=== PATIENT | female | born 1975 | race American Indian/Alaskan Native ===

== ENCOUNTER 2018-01-20 16:23 | Inpatient (IN) | payer SELFPAY ==
--- NOTE | 2018-01-20 17:02 | Emergency Department Report ---
ED Chest Pain HPI - General Chief Complaint: Chest Pain Stated Complaint: CHEST PAIN Time Seen by Provider: 01/20/18 16:49 Source: patient, EMS Mode of arrival: Stretcher Limitations: No Limitations - History of Present Illness Initial Comments: 42-year-old female presents to the emergency department via EMS from home with a complaint of midsternal chest pain that began about 45 minutes prior to presentation. After calling 911 she was instructed to take 325 mg of aspirin and she received sublingual nitroglycerin in route with EMS and currently she says that her chest pain has resolved. She had some mild shortness of breath when the chest pain was going on. The patient had a myocardial infarction with stent placement approximately 3 weeks ago at [facility] in [place]. She does not know what artery was stented. She has a history of hypertension for which she is on 2 or 3 blood pressure medications. She denies any family history of early cardiac events. She denies any tobacco or illicit drug use or abuse. - Related Data Allergies Allergy/AdvReac Type Severity Reaction Status Date / Time No Known Allergies Allergy Unverified 01/20/18 16:41 Heart Score - HEART Score History: Moderately suspicious EKG: Non-specific Age: < 45 Risk factors: 1-2 risk factors Troponin: 1-3x normal limit HEART Score: 4 - Critical Actions Critical Actions: 4-6 pts:12-16.6% risk of adverse cardiac event. Should be admitted ED Review of Systems ROS: Stated complaint: CHEST PAIN Other details as noted in HPI Comment: All other systems reviewed and negative Constitutional: denies: chills, fever Eyes: denies: eye pain, eye discharge, vision change ENT: denies: ear pain, throat pain Respiratory: shortness of breath. denies: cough Cardiovascular: chest pain. denies: palpitations Gastrointestinal: denies: abdominal pain, nausea, diarrhea Genitourinary: denies: urgency, dysuria, discharge Musculoskeletal: denies: back pain, joint swelling, arthralgia Skin: denies: rash, lesions Neurological: denies: headache, weakness, paresthesias ED Past Medical Hx - Past Medical History Previous Medical History?: Yes Hx Hypertension: Yes Hx Heart Attack/AMI: Yes - Surgical History Past Surgical History?: Yes - Social History Smoking Status: Never Smoker Substance Use Type: None ED Physical Exam - General Limitations: No Limitations - Other Other exam information: GENERAL: The patient is well-developed well-nourished. HENT: Normocephalic. Atraumatic. Patient has moist mucous membranes. EYES: Extraocular motions are intact. Pupils equal reactive to light bilaterally. NECK: Supple. Trachea is midline. CHEST/LUNGS: Clear to auscultation. There is no respiratory distress noted. HEART/CARDIOVASCULAR: Regular. There is no tachycardia. There is no murmur. ABDOMEN: Abdomen is soft, nontender. Patient has normal bowel sounds. There is no abdominal distention. SKIN: Skin is warm and dry. NEURO: The patient is awake, alert, and oriented. The patient is cooperative. The patient has no focal neurologic deficits. The patient has normal speech. MUSCULOSKELETAL: There is no tenderness or deformity. There is no limitation range of motion. There is no evidence of acute injury. ED Course Vital Signs 01/20/18 01/20/18 01/20/18 16:33 17:00 17:30 Temperature 98.7 F Pulse Rate 89 77 70 Respiratory 16 14 14 Rate Blood Pressure 191/107 174/95 155/89 O2 Sat by Pulse 100 100 100 Oximetry 01/20/18 01/20/18 01/20/18 18:45 18:53 19:00 Temperature Pulse Rate 73 73 Respiratory 14 26 H Rate Blood Pressure 153/89 153/89 158/85 O2 Sat by Pulse 99 Oximetry 01/20/18 01/20/18 01/20/18 19:30 19:45 20:00 Temperature Pulse Rate 81 76 Respiratory 34 H 32 H 31 H Rate Blood Pressure 161/99 161/99 167/93 O2 Sat by Pulse 100 100 99 Oximetry MYRTLE score - Myrtle Score Age > 65: (0) No Aspirin use within the Past 7 Days: (1) Yes 3 or more CAD Risk Factors: (1) Yes 2 or more Angina events in past 24 hrs: (1) Yes Known CAD with more than 50% Stenosis: (0) No Elevated Cardiac Markers: (1) Yes ST Deviation Greater than 0.5mm: (1) Yes MYRTLE Score: 5 ED Medical Decision Making - Lab Data Result diagrams: 01/20/18 16:59 01/20/18 16:59 - EKG Data -: EKG Interpreted by Fl EKG shows normal: sinus rhythm, axis (left axis deviation), intervals, QRS complexes (early repolarization to septal leads), ST-T waves (T-wave inversions to the lateral leads) Rate: normal - EKG Data When compared to previous EKG there are: previous EKG unavailable Interpretation: other (sinus rhythm, LVH, interventricular conduction delay with early repolarization, T-wave inversions in the lateral leads) - Radiology Data Radiology results: image reviewed interpreted by me: Chest x-ray does not show any acute process. There are no pleural effusions, obvious pneumonia and there is no pneumothorax. - Medical Decision Making Patient no longer has any of the chest pain. However she has a history of a NE with recent stent from about 3 weeks ago. EKG shows some repolarization abnormalities and LVH but no obvious ST elevation NE. Patient's labs show renal insufficiency with a creatinine of 3.3. The patient says that she does have some history recently of renal insufficiency but she is unsure what her creatinine or GFR rate is/was. It sounds like the patient did not follow-up with any primary care physicians prior to her recent NE. Tried to obtain records from the [facility] where she had the NE but nothing has been sent yet. She has some anemia with a hemoglobin slightly above 9. First troponin is slightly elevated at 0.038. This may be secondary to her renal insufficiency but also may be signs of her coronary artery disease. We will trend the troponins. Patient will be admitted to the hospital for further evaluation, serial troponins and cardiac consultation. She was accepted for admission by the hospitalist, Dr. Preciado. - Differential Diagnosis NE, Costochondritis, GERD, Pneumonia Critical Care Time: No Critical care attestation.: If time is entered above; I have spent that time in minutes in the direct care of this critically ill patient, excluding procedure time. ED Disposition Clinical Impression: Elevated troponin I level Chest pain Qualifiers: Chest pain type: unspecified Qualified Code(s): R07.9 - Chest pain, unspecified Renal failure Qualifiers: Renal failure chronicity: unspecified chronicity Qualified Code(s): N19 - Unspecified kidney failure Hypertension Qualifiers: Hypertension type: essential hypertension Qualified Code(s): I10 - Essential ( primary) hypertension Disposition: OP ADMIT IP TO THIS HOSP Is pt being admited?: Yes Condition: Fair Time of Disposition: 18:31
[2018-01-20 17:17] LABS: Mean Corpuscular HGB Conc 28 % (30-34); Red Blood Count 5.55 M/mm3 (3.65-5.03)
[2018-01-20 17:18] LABS: Hematocrit 33.3 % (30.3-42.9); Hemoglobin 9.3 gm/dl (10.1-14.3); Mean Corpuscular Hemoglobin 17 pg (28-32); Mean Corpuscular Volume 60 fl (79-97); Platelet Count 250 K/mm3 (140-440); Red Cell Distribution Width 36.3 % (13.2-15.2)
[2018-01-20 17:26] LABS: INR 0.99 (0.87-1.13)
[2018-01-20 17:32] LABS: Calcium 9.1 mg/dL (8.4-10.2)
[2018-01-20] MEDS ORDERED: LOPRESSOR IV ONE (17:34)
[2018-01-20 17:57] LABS: Chol/HDL Ratio 3.5 %
[2018-01-20 18:12] LABS: Basophils % (Manual) 0 % (0.0-1.8); Eosinophils % (Manual) 0 % (0.0-4.3); Total Cells Counted 100
[2018-01-20 18:13] LABS: Hypochromasia 3+; Large Platelets 1+
[2018-01-20 18:14] LABS: Ovalocytes Few; Platelet Estimate Consistent w Auto; Target Cells 1+
--- NOTE | 2018-01-20 18:19 | XRay Report ---
FINAL REPORT EXAM: XR CHEST 1V AP HISTORY: CP TECHNIQUE: Single, portable chest x-ray. PRIORS: None. FINDINGS: Cardiac and mediastinal silhouette within normal limits. Lungs are normally expanded, without significant vascular congestion. No focal consolidation or apparent pneumothorax. Bony thorax grossly unremarkable. IMPRESSION: 1. No acute findings.
[2018-01-20] MEDS ORDERED: ZOFRAN IV PRN (21:41)
[2018-01-20] MEDS ORDERED: MORPHINE IV PRN (21:41)
[2018-01-20] MEDS ORDERED: SODIUM CHLORIDE FLUSH SYRINGE 10 ML IV PRN (21:41)
[2018-01-20] MEDS ORDERED: TYLENOL PO PRN (21:41)
[2018-01-20] MEDS ORDERED: REGLAN IV PRN ×2 (21:41→21:59)
[2018-01-20] MEDS ORDERED: PERCOCET 5/325 PO PRN (21:41)
--- NOTE | 2018-01-20 21:41 | History and Physical Report ---
History of Present Illness Date of examination: 01/20/18 Date of admission: 01/20/18 18:31 Chief complaint: Chief complaint Left-sided chest pain for 45 minutes prior to admission History of present illness: History of Present Illness: 42-year-old female with history of hypertension and coronary artery disease presents with retrosternal chest pain 45 hours prior to admission to the emergency room. Patient called EMS and 911. Sublingual nitroglycerin was given with which his assessment is resolved but she continued to have some headache. Patient had a stent placement 3 weeks ago at [facility]. Patient was also told that she has chronic kidney disease. In the past patient only had hypertension. No exacerbating or relieving factors ,no diaphoresis. Past Medical History Previous Medical History?: Yes Hx Hypertension: Yes Hx Heart Attack/AMI: Yes Surgical History Past Surgical History?: Yes Social History Smoking Status: Never Smoker Substance Use Type: None Review of Systems ROS: Stated complaint: CHEST PAIN Other details as noted in HPI Comment: All other systems reviewed and negative Constitutional: denies: chills, fever Eyes: denies: eye pain, eye discharge, vision change ENT: denies: ear pain, throat pain Respiratory: shortness of breath. denies: cough Cardiovascular: chest pain. denies: palpitations Gastrointestinal: denies: abdominal pain, nausea, diarrhea Genitourinary: denies: urgency, dysuria, discharge Musculoskeletal: denies: back pain, joint swelling, arthralgia Skin: denies: rash, lesions Neurological: denies: headache, weakness, paresthesias 14 point review of systems done--- otherwise negative Medications and Allergies Allergies Allergy/AdvReac Type Severity Reaction Status Date / Time No Known Allergies Allergy Unverified 01/20/18 16:41 Active Meds: Active Medications Heparin Sodium (Porcine) (Heparin) 5,000 unit SUB-Q Q8HR SHIRIN Exam - Physical Exam Narrative exam: Lying in bed comfortably - Constitutional Vitals: Temp Pulse Resp BP Pulse Ox 98.7 F 74 31 H 167/93 99 01/20/18 16:33 01/20/18 21:01 01/20/18 20:00 01/20/18 20:00 01/20/18 20:00 General appearance: Present: no acute distress, well-nourished - EENT Eyes: Present: PERRL ENT: hearing intact, clear oral mucosa - Neck Neck: Present: supple, normal ROM - Respiratory Respiratory effort: normal Respiratory: bilateral: CTA - Cardiovascular Heart rate: 93 Rhythm: regular Heart Sounds: Present: S1 & S2. Absent: rub, click - Extremities Extremities: no ischemia, pulses intact, pulses symmetrical, No edema Peripheral Pulses: within normal limits - Abdominal General gastrointestinal: Present: soft, non-tender, non-distended, normal bowel sounds Female genitourinary: Present: normal - Integumentary Integumentary: Present: clear, warm, dry - Musculoskeletal Musculoskeletal: gait normal, strength equal bilaterally - Psychiatric Psychiatric: appropriate mood/affect, intact judgment & insight - Neurologic Neurologic: CNII-XII intact, moves all extremities - Allied Health Allied health notes reviewed: nursing, case management Results - Labs CBC & Chem 7: 01/20/18 16:59 01/21/18 Unknown Labs: Laboratory Last Values WBC 7.0 K/mm3 (4.5-11.0) 01/20/18 16:59 RBC 5.55 M/mm3 (3.65-5.03) H 01/20/18 16:59 Hgb 9.3 gm/dl (10.1-14.3) L 01/20/18 16:59 Hct 33.3 % (30.3-42.9) 01/20/18 16:59 MCV 60 fl (79-97) L 01/20/18 16:59 MCH 17 pg (28-32) L 01/20/18 16:59 MCHC 28 % (30-34) L 01/20/18 16:59 RDW 36.3 % (13.2-15.2) H 01/20/18 16:59 Plt Count 250 K/mm3 (140-440) 01/20/18 16:59 Add Manual Diff Complete 01/20/18 16:59 Total Counted 100 01/20/18 16:59 Seg Neuts % (Manual) 81.0 % (40.0-70.0) H 01/20/18 16:59 Band Neutrophils % 0 % 01/20/18 16:59 Lymphocytes % (Manual) 13.0 % (13.4-35.0) L 01/20/18 16:59 Reactive Lymphs % (Man) 0 % 01/20/18 16:59 Monocytes % (Manual) 6.0 % (0.0-7.3) 01/20/18 16:59 Eosinophils % (Manual) 0 % (0.0-4.3) 01/20/18 16:59 Basophils % (Manual) 0 % (0.0-1.8) 01/20/18 16:59 Metamyelocytes % 0 % 01/20/18 16:59 Myelocytes % 0 % 01/20/18 16:59 Promyelocytes % 0 % 01/20/18 16:59 Blast Cells % 0 % 01/20/18 16:59 Nucleated RBC % Not Reportable 01/20/18 16:59 Seg Neutrophils # Man 5.7 K/mm3 (1.8-7.7) 01/20/18 16:59 Band Neutrophils # 0.0 K/mm3 01/20/18 16:59 Lymphocytes # (Manual) 0.9 K/mm3 (1.2-5.4) L 01/20/18 16:59 Abs React Lymphs (Man) 0.0 K/mm3 01/20/18 16:59 Monocytes # (Manual) 0.4 K/mm3 (0.0-0.8) 01/20/18 16:59 Eosinophils # (Manual) 0.0 K/mm3 (0.0-0.4) 01/20/18 16:59 Basophils # (Manual) 0.0 K/mm3 (0.0-0.1) 01/20/18 16:59 Metamyelocytes # 0.0 K/mm3 01/20/18 16:59 Myelocytes # 0.0 K/mm3 01/20/18 16:59 Promyelocytes # 0.0 K/mm3 01/20/18 16:59 Blast Cells # 0.0 K/mm3 01/20/18 16:59 WBC Morphology Not Reportable 01/20/18 16:59 Hypersegmented Neuts Not Reportable 01/20/18 16:59 Hyposegmented Neuts Not Reportable 01/20/18 16:59 Hypogranular Neuts Not Reportable 01/20/18 16:59 Smudge Cells Not Reportable 01/20/18 16:59 Toxic Granulation Not Reportable 01/20/18 16:59 Toxic Vacuolation Not Reportable 01/20/18 16:59 Dohle Bodies Not Reportable 01/20/18 16:59 Pelger-Huet Anomaly Not Reportable 01/20/18 16:59 Mukesh Rods Not Reportable 01/20/18 16:59 Platelet Estimate Consistent w auto 01/20/18 16:59 Clumped Platelets Not Reportable 01/20/18 16:59 Plt Clumps, EDTA Not Reportable 01/20/18 16:59 Large Platelets 1+ 01/20/18 16:59 Giant Platelets Not Reportable 01/20/18 16:59 Platelet Satelliting Not Reportable 01/20/18 16:59 Plt Morphology Comment Not Reportable 01/20/18 16:59 RBC Morphology Not Reportable 01/20/18 16:59 Dimorphic RBCs Not Reportable 01/20/18 16:59 Polychromasia Not Reportable 01/20/18 16:59 Hypochromasia 3+ 01/20/18 16:59 Poikilocytosis Not Reportable 01/20/18 16:59 Anisocytosis Not Reportable 01/20/18 16:59 Microcytosis 2+ 01/20/18 16:59 Macrocytosis Not Reportable 01/20/18 16:59 Spherocytes Not Reportable 01/20/18 16:59 Pappenheimer Bodies Not Reportable 01/20/18 16:59 Sickle Cells Not Reportable 01/20/18 16:59 Target Cells 1+ 01/20/18 16:59 Tear Drop Cells Not Reportable 01/20/18 16:59 Ovalocytes Few 01/20/18 16:59 Helmet Cells Not Reportable 01/20/18 16:59 Gregory-Ambler Bodies Not Reportable 01/20/18 16:59 [place] Rings Not Reportable 01/20/18 16:59 [place] Cells Not Reportable 01/20/18 16:59 Bite Cells Not Reportable 01/20/18 16:59 Crenated Cell Not Reportable 01/20/18 16:59 Elliptocytes Not Reportable 01/20/18 16:59 Acanthocytes (Spur) Not Reportable 01/20/18 16:59 Rouleaux Not Reportable 01/20/18 16:59 Hemoglobin C Crystals Not Reportable 01/20/18 16:59 Schistocytes Not Reportable 01/20/18 16:59 Malaria parasites Not Reportable 01/20/18 16:59 Toby Bodies Not Reportable 01/20/18 16:59 Hem Pathologist Commnt No 01/20/18 16:59 PT 13.6 Sec. (12.2-14.9) 01/20/18 16:59 INR 0.99 (0.87-1.13) 01/20/18 16:59 APTT 32.0 Sec. (24.2-36.6) 01/20/18 16:59 Sodium 138 mmol/L (137-145) 01/20/18 16:59 Potassium 4.8 mmol/L (3.6-5.0) 01/20/18 16:59 Chloride 102.3 mmol/L (98-107) 01/20/18 16:59 Carbon Dioxide 24 mmol/L (22-30) 01/20/18 16:59 Anion Gap 17 mmol/L 01/20/18 16:59 BUN 34 mg/dL (7-17) H 01/20/18 16:59 Creatinine 3.3 mg/dL (0.7-1.2) H 01/20/18 16:59 Estimated GFR 18 ml/min 01/20/18 16:59 BUN/Creatinine Ratio 10 % 01/20/18 16:59 Glucose 137 mg/dL (65-100) H 01/20/18 16:59 Calcium 9.1 mg/dL (8.4-10.2) 01/20/18 16:59 Troponin T 0.038 ng/mL (0.00-0.029) H 01/20/18 16:59 Triglycerides 212 mg/dL (2-149) H 01/20/18 16:59 Cholesterol 228 mg/dL (50-199) H 01/20/18 16:59 LDL Cholesterol Direct 142 mg/dL (50-130) H 01/20/18 16:59 HDL Cholesterol 65 mg/dL (40-59) H 01/20/18 16:59 Cholesterol/HDL Ratio 3.50 % 01/20/18 16:59 Short CBC 01/20/18 Range/Units 16:59 WBC 7.0 (4.5-11.0) K/mm3 Hgb 9.3 L (10.1-14.3) gm/dl Hct 33.3 (30.3-42.9) % Plt Count 250 (140-440) K/mm3 BMP 01/20/18 01/21/18 16:59 Unknown Sodium 138 137 Potassium 4.8 4.1 Chloride 102.3 102.2 Carbon Dioxide 24 24 BUN 34 H 31 H Creatinine 3.3 H 3.1 H Glucose 137 H 79 Calcium 9.1 8.9 Cardiac Enzymes 01/20/18 01/20/18 01/20/18 Range/Units 16:59 21:41 23:10 Troponin T 0.038 H 0.065 H D 0.057 H (0.00-0.029) ng/mL 01/21/18 Range/Units Unknown Troponin T 0.069 H D (0.00-0.029) ng/mL Liver Function 01/21/18 Range/Units Unknown Total Bilirubin 0.50 (0.1-1.2) mg/dL AST 19 (5-40) units/L ALT 6 L (7-56) units/L Alkaline Phosphatase 100 (35-129) units/L Albumin 3.6 L (3.9-5) g/dL - Imaging and Cardiology EKG: report reviewed (normal sinus rhythm 93 LVH [address] IVCD anterior ST elevation. Deep paravertebral region aVL lead 1 and lead to ONLY 4586 EKG interpreted by me) Chest x-ray: report reviewed (no acute findings) Assessment and Plan Advance Directives: Yes (full code) VTE prophylaxis?: Chemical Plan of care discussed with patient/family: Yes - Patient Problems (1) NSTEMI (non-ST elevated myocardial infarction) Current Visit: Yes Status: Acute Plan to address problem: Patient has elevated troponin and EKG changes consistent with non-STEMI Heparin IV was initiated as standard drip with bolus (2) Acute kidney injury Current Visit: Yes Status: Acute Plan to address problem: Will give IV fluid challenge Patient may have underlying chronic kidney disease Renal consult requested (3) Hypertension Current Visit: Yes Status: Chronic Qualifiers: Hypertension type: essential hypertension Qualified Code(s): I10 - Essential (primary) hypertension Plan to address problem: Continue antihypertensives (4) Dyslipidemia Current Visit: Yes Status: Chronic Plan to address problem: Statins initiated (5) Anemia Current Visit: Yes Status: Chronic Qualifiers: Anemia type: due to chronic kidney disease Chronic kidney disease stage: stage 4 (severe) Qualified Code(s): N18.4 - Chronic kidney disease, stage 4 ( severe); D63.1 - Anemia in chronic kidney disease Plan to address problem: Secondary to chronic kidney disease (6) DVT prophylaxis Current Visit: Yes Status: Acute Plan to address problem: Patient on heparin drip
[2018-01-20] MEDS ORDERED: PEPCID PO SCH (22:00)
[2018-01-20] MEDS ORDERED: COZAAR PO SCH (22:00)
[2018-01-20] MEDS: COLACE PO SCH (23:30)
[2018-01-20] MEDS: HEPARIN SUB-Q SCH (23:32)
[2018-01-20] MEDS: SODIUM CHLORIDE FLUSH SYRINGE 10 ML IV SCH (23:33)
[2018-01-20] MEDS: PEPCID PO SCH (23:33)
[2018-01-21 06:49] LABS: Albumin 3.6 g/dL (3.9-5); Calcium 8.9 mg/dL (8.4-10.2)
[2018-01-21] MEDS: HEPARIN SUB-Q SCH (07:14)
[2018-01-21] MEDS ORDERED: HEPARIN 10,000 UNITS/10 ML IV NR (07:49)
[2018-01-21] MEDS ORDERED: HEPARIN/ 0.45% NACL-25,000 UNIT/500 ML 25,000 UNIT/500 ML BAG IV SCH (08:00)
[2018-01-21] MEDS ORDERED: NACL 0.9% 1000 ML 1,000 ML IV SCH (08:00)
--- NOTE | 2018-01-21 08:33 | Consultation ---
History of Present Illness - Reason for Consult Consult date: 01/21/18 - History of Present Illness pt was seen and examined. Consult dictated Medications and Allergies Allergies Allergy/AdvReac Type Severity Reaction Status Date / Time No Known Allergies Allergy Unverified 01/20/18 16:41 Home Medications Medication Instructions Recorded Confirmed Last Taken Type No Known Home Medications [No 01/21/18 01/21/18 Unknown History Reported Home Medications] Active Meds: Active Medications Acetaminophen (Tylenol) 650 mg PO Q4H PRN PRN Reason: Pain MILD(1-3)/Fever >100.5/ANTONIO Docusate Sodium (Colace) 100 mg PO BID [facility] Last Admin: 01/20/18 23:30 Dose: Not Given Famotidine (Pepcid) 10 mg PO BID [facility] Last Admin: 01/20/18 23:33 Dose: 10 mg Heparin Sodium (Porcine) (Heparin 10,000 Units/10 Ml) 3,700 unit 60 unit/kg ( 3700 unit) IV ONCE NR Stop: 01/21/18 10:00 Heparin Sodium/Sodium Chloride (Heparin/ 0.45% Nacl-25,000 Unit/500 Ml) 25,000 unit in 500 mls @ 18 mls/hr IV TITRATE SHIRIN; Protocol Sodium Chloride (Nacl 0.9% 1000 Ml) 1,000 mls @ 75 mls/hr IV DIRECT SHIRIN Losartan Potassium (Cozaar) 100 mg PO QDAY [facility] Last Admin: 01/20/18 23:31 Dose: 100 mg Metoclopramide HCl (Reglan) 5 mg IV Q6H PRN PRN Reason: Nausea And Vomiting Morphine Sulfate (Morphine) 2 mg IV Q4H PRN PRN Reason: Pain, Moderate (4-6) Ondansetron HCl (Zofran) 4 mg IV Q8H PRN PRN Reason: Nausea And Vomiting Oxycodone/Acetaminophen (Percocet 5/325) 1 tab PO Q6H PRN PRN Reason: Pain, Moderate (4-6) Sodium Chloride (Sodium Chloride Flush Syringe 10 Ml) 10 ml IV PRN PRN PRN Reason: LINE FLUSH Sodium Chloride (Sodium Chloride Flush Syringe 10 Ml) 10 ml IV BID [facility] Last Admin: 01/20/18 23:33 Dose: 10 ml Exam - Constitutional Vitals: Temp Pulse Resp BP Pulse Ox 98.6 F 68 20 135/83 100 01/21/18 04:52 01/21/18 04:52 01/21/18 04:52 01/21/18 04:52 01/21/18 08:00 Results - Labs CBC & Chem 7: 01/21/18 07:52 01/21/18 Unknown Labs: Abnormal lab results 01/20/18 01/20/18 01/20/18 Range/Units 16:59 16:59 21:41 RBC 5.55 H (3.65-5.03) M/mm3 Hgb 9.3 L (10.1-14.3) gm/dl MCV 60 L (79-97) fl MCH 17 L (28-32) pg MCHC 28 L (30-34) % RDW 36.3 H (13.2-15.2) % Seg Neuts % (Manual) 81.0 H (40.0-70.0) % Lymphocytes % (Manual) 13.0 L (13.4-35.0) % Lymphocytes # (Manual) 0.9 L (1.2-5.4) K/mm3 BUN 34 H (7-17) mg/dL Creatinine 3.3 H (0.7-1.2) mg/dL Glucose 137 H (65-100) mg/dL ALT (7-56) units/L Troponin T 0.038 H 0.065 H D (0.00-0.029) ng/mL Albumin (3.9-5) g/dL Triglycerides 212 H (2-149) mg/dL Cholesterol 228 H (50-199) mg/dL LDL Cholesterol Direct 142 H (50-130) mg/dL HDL Cholesterol 65 H (40-59) mg/dL 01/20/18 01/21/18 01/21/18 Range/Units 23:10 Unknown Unknown RBC (3.65-5.03) M/mm3 Hgb (10.1-14.3) gm/dl MCV (79-97) fl MCH (28-32) pg MCHC (30-34) % RDW (13.2-15.2) % Seg Neuts % (Manual) (40.0-70.0) % Lymphocytes % (Manual) (13.4-35.0) % Lymphocytes # (Manual) (1.2-5.4) K/mm3 BUN 31 H (7-17) mg/dL Creatinine 3.1 H (0.7-1.2) mg/dL Glucose (65-100) mg/dL ALT 6 L (7-56) units/L Troponin T 0.057 H 0.069 H D (0.00-0.029) ng/mL Albumin 3.6 L (3.9-5) g/dL Triglycerides (2-149) mg/dL Cholesterol (50-199) mg/dL LDL Cholesterol Direct (50-130) mg/dL HDL Cholesterol (40-59) mg/dL
[2018-01-21 08:41] LABS: Hematocrit 31.6 % (30.3-42.9); Hemoglobin 9.3 gm/dl (10.1-14.3)
[2018-01-21 08:42] LABS: INR 0.97 (0.87-1.13)
[2018-01-21 08:43] LABS: Partial Thromboplastin Time 35.4 Sec. (24.2-36.6)
--- NOTE | 2018-01-21 09:14 | Consultation ---
History of Present Illness Consult date: 01/21/18 Requesting physician: JAIMIE MELVIN Consult reason: chest pain, elevated troponin History of present illness: The pt is a 42 Yo female with a past medical history significant for HTN, ? HLP , ? CKD and reported CAD s/p AMI with stent placement approximately 3 weeks ago at [facility] in [facility]. She is previously unknown to our practice. She presented with complaints of "heart racing" and chest pain. She reports that she was sitting in her car yesterday and talking on the phone when she noted sudden onset heart racing which lasted for several minutes and then resolved. Shortly after the resolution of this symptom, she developed chest pain. She describes her chest pain as a constant, nonexertional , nonradiating midsternal burning pain. She called EMS and was instructed to take 325mg of ASA and she received sublingual nitroglycerin en route with EMS and her chest pain was resolved. The chest pain lasted for approx 20-25 minutes total. She denies any SOB, n/v, diaphoresis, dizziness or syncope. She reports that during her recent AMI, she experienced nausea, vomiting and SOB with very minimal chest pain. She reports compliance with her home cardiac medication regimen, including ASA 81, plavix, coreg, furosemide, amlodipine, clonidine and furosemide. Following arrival, she was found to have acute renal failure with serum Cr 3.3. Pt reports that during her recent hospitalization 3 weeks ago, she was told she had kidney failure and may need dialysis in the near future. Past History Past Medical History: acute AL, CAD, hypertension, hyperlipidemia Past Surgical History: , PTCA Social history: denies: smoking, alcohol abuse, prescription drug abuse Medications and Allergies Allergies Allergy/AdvReac Type Severity Reaction Status Date / Time No Known Allergies Allergy Unverified 01/20/18 16:41 Home Medications Medication Instructions Recorded Confirmed Last Taken Type No Known Home Medications [No 01/21/18 01/21/18 Unknown History Reported Home Medications] Active Meds: Active Medications Acetaminophen (Tylenol) 650 mg PO Q4H PRN PRN Reason: Pain MILD(1-3)/Fever >100.5/ANTONIO Docusate Sodium (Colace) 100 mg PO BID [facility] Last Admin: 01/20/18 23:30 Dose: Not Given Famotidine (Pepcid) 10 mg PO BID [facility] Last Admin: 01/20/18 23:33 Dose: 10 mg Heparin Sodium (Porcine) (Heparin 10,000 Units/10 Ml) 3,700 unit 60 unit/kg ( 3700 unit) IV ONCE NR Stop: 01/21/18 10:00 Heparin Sodium/Sodium Chloride (Heparin/ 0.45% Nacl-25,000 Unit/500 Ml) 25,000 unit in 500 mls @ 18 mls/hr IV TITRATE SHIRIN; Protocol Sodium Chloride (Nacl 0.9% 1000 Ml) 1,000 mls @ 75 mls/hr IV DIRECT SHIRIN Losartan Potassium (Cozaar) 100 mg PO QDAY [facility] Last Admin: 01/20/18 23:31 Dose: 100 mg Metoclopramide HCl (Reglan) 5 mg IV Q6H PRN PRN Reason: Nausea And Vomiting Morphine Sulfate (Morphine) 2 mg IV Q4H PRN PRN Reason: Pain, Moderate (4-6) Ondansetron HCl (Zofran) 4 mg IV Q8H PRN PRN Reason: Nausea And Vomiting Oxycodone/Acetaminophen (Percocet 5/325) 1 tab PO Q6H PRN PRN Reason: Pain, Moderate (4-6) Sodium Chloride (Sodium Chloride Flush Syringe 10 Ml) 10 ml IV PRN PRN PRN Reason: LINE FLUSH Sodium Chloride (Sodium Chloride Flush Syringe 10 Ml) 10 ml IV BID [facility] Last Admin: 01/20/18 23:33 Dose: 10 ml Review of Systems Constitutional: no weight loss, no weight gain, no fever, no chills, no sweats Ears, nose, mouth and throat: no ear pain, no nose pain, no sinus pressure, no sinus pain Cardiovascular: chest pain, palpitations, rapid/irregular heart beat, high blood pressure, no orthopnea, no edema, no syncope, no lightheadedness, no shortness of breath, no dyspnea on exertion, no leg edema, no decreased exercise tolerance Respiratory: no cough, no shortness of breath, no dyspnea on exertion, no congestion, no wheezing, no pain on inspiration Gastrointestinal: no abdominal pain, no nausea, no vomiting, no diarrhea, no constipation, no change in bowel habits Genitourinary Female: no pelvic pain, no flank pain, no dysuria, no urinary frequency, no urgency Musculoskeletal: no neck stiffness, no neck pain Integumentary: no rash, no pruritis, no redness, no sores, no wounds Neurological: no head injury, no paralysis, no weakness, no parathesias, no numbness, no tingling, no seizures, no syncope Psychiatric: no anxiety Endocrine: no cold intolerance, no heat intolerance Hematologic/Lymphatic: no easy bruising, no easy bleeding, no lymphadenopathy Allergic/Immunologic: no urticaria, no wheezing, no persistent infections Physical Examination Vital Signs Temp Pulse Resp BP Pulse Ox 98.7 F 89 16 191/107 100 01/20/18 16:33 01/20/18 16:33 01/20/18 16:33 01/20/18 16:33 01/20/18 16:33 General appearance: no acute distress HEENT: Positive: PERRL, Normocephaly, Mucus Membranes Moist Neck: Positive: neck supple, trachea midline Cardiac: Positive: Reg Rate and Rhythm, S1/S2 Lungs: Positive: clear to auscultation Neuro: Positive: Grossly Intact, Cranial Nerve 2-12 Intact Abdomen: Positive: Soft. Negative: Tender Skin: Positive: Clear. Negative: Rash, Wound Musculoskeletal: No Fluid Collection, No Pain, Normal Range of Motion Extremities: Absent: edema Results 01/21/18 07:52 01/21/18 Unknown Cardiac Enzymes 01/21/18 Range/Units Unknown AST 19 (5-40) units/L Coagulation 01/20/18 01/21/18 Range/Units 16:59 07:52 PT 13.6 13.4 (12.2-14.9) Sec. INR 0.99 0.97 (0.87-1.13) APTT 32.0 35.4 (24.2-36.6) Sec. Lipids 01/20/18 Range/Units 16:59 Triglycerides 212 H (2-149) mg/dL Cholesterol 228 H (50-199) mg/dL HDL Cholesterol 65 H (40-59) mg/dL Cholesterol/HDL Ratio 3.50 % CBC 01/20/18 01/21/18 Range/Units 16:59 07:52 WBC 7.0 (4.5-11.0) K/mm3 RBC 5.55 H (3.65-5.03) M/mm3 Hgb 9.3 L 9.3 L (10.1-14.3) gm/dl Hct 33.3 31.6 (30.3-42.9) % Plt Count 250 250 (140-440) K/mm3 Comprehensive Metabolic Panel 01/20/18 01/21/18 Range/Units 16:59 Unknown Sodium 138 137 (137-145) mmol/L Potassium 4.8 4.1 (3.6-5.0) mmol/L Chloride 102.3 102.2 (98-107) mmol/L Carbon Dioxide 24 24 (22-30) mmol/L BUN 34 H 31 H (7-17) mg/dL Creatinine 3.3 H 3.1 H (0.7-1.2) mg/dL Glucose 137 H 79 (65-100) mg/dL Calcium 9.1 8.9 (8.4-10.2) mg/dL AST 19 (5-40) units/L ALT 6 L (7-56) units/L Alkaline Phosphatase 100 (35-129) units/L Total Protein 6.9 (6.3-8.2) g/dL Albumin 3.6 L (3.9-5) g/dL - Imaging and Cardiology Echo: pending EKG: report reviewed, image reviewed EKG interpretations - Telemetry EKG Rhythm: Sinus Rhythm - EKG Sinus rhythms and dysrhythmias: sinus rhythm Chamber hypertrophy or enlargement: left ventricular hypertro Repolarization changes or abnormalities: repolarization abn secondary to ventricular hypertrophy Assessment and Plan Assessment: Chest pain, atypical - currently resolved CAD s/p AMI with stent placement approximately 3 weeks ago at [facility] in [facility] Acute renal failure on ? CKD Minimally elevated troponins - suspect secondary to renal insufficiency Abnormal EKG Accelerated HTN HLP Plan: Obtain echo. Attempt to obtain medical records from [place]. Resume home ASA, plavix, coreg. Initiate lipitor and imdur. No ACEI/ARB at this time in setting of renal insufficiency. Consider lexiscan MPI stress test prior to hospital discharge if unable to obtain medical records from [place]. Await nephrology consultation and recommendations. Assessment and plan reviewed with pt at bedside. The patient has been seen in conjunction with Dr. Jaffe who agrees with the assessment and plan of care.
[2018-01-21] MEDS ORDERED: BABY ASPIRIN PO SCH (10:00)
[2018-01-21] MEDS: PLAVIX PO SCH (10:59)
[2018-01-21] MEDS ORDERED: ASPIRIN PO SCH (11:00)
[2018-01-21] MEDS ORDERED: IMDUR PO SCH (11:00)
[2018-01-21 11:02] LABS: Creatine Kinase MB 2.7 ng/mL (0.0-4.0)
[2018-01-21] MEDS: COLACE PO SCH ×2 (11:02→22:48)
[2018-01-21 11:04] LABS: % Iron Saturation 15.59 %
[2018-01-21] MEDS: COREG PO SCH ×2 (11:08→22:49)
[2018-01-21] MEDS: PEPCID PO SCH ×2 (11:08→22:48)
[2018-01-21] MEDS: SODIUM CHLORIDE FLUSH SYRINGE 10 ML IV SCH ×2 (11:09→22:50)
[2018-01-21 14:24] LABS: Bilirubin,Urine NEG (Negative); Blood,Urine NEG (Negative); Chloride, Urine 39.9 mmolL (110-250); Color,Urine Yellow (Yellow); Creatinine,Urine 128.6 mg/dL (0.1-20.0); Urobilinogen,Urine < 2.0 mg/dL (<2.0)
--- NOTE | 2018-01-21 15:25 | Progress Note ---
Assessment and Plan - Patient Problems (1) NSTEMI (non-ST elevated myocardial infarction) Current Visit: Yes Status: Acute Plan to address problem: Per cardiology patient has atypical chest pain Heparin drip stopped Lexiscan ordered Medical records from [facility] requested (2) Acute kidney injury Current Visit: Yes Status: Acute Plan to address problem: Will give IV fluid challenge Patient may have underlying chronic kidney disease Renal consult requested (3) Hypertension Current Visit: Yes Status: Chronic Qualifiers: Hypertension type: essential hypertension Qualified Code(s): I10 - Essential (primary) hypertension Plan to address problem: Continue antihypertensives (4) Dyslipidemia Current Visit: Yes Status: Chronic Plan to address problem: Statins initiated (5) Anemia Current Visit: Yes Status: Chronic Qualifiers: Anemia type: due to chronic kidney disease Chronic kidney disease stage: stage 4 (severe) Qualified Code(s): N18.4 - Chronic kidney disease, stage 4 ( severe); D63.1 - Anemia in chronic kidney disease Plan to address problem: Secondary to chronic kidney disease (6) DVT prophylaxis Current Visit: Yes Status: Acute Plan to address problem: Patient on heparin drip Subjective Date of service: 01/21/18 Principal diagnosis: NSTEMI/Atypical chest pain Interval history: Symptomatically better. Chest pain resolved Objective - Exam Narrative Exam: Lying in bed comfortably - Constitutional Vitals: Vital Signs - 12hr 01/21/18 01/21/18 01/21/18 04:52 07:33 08:00 Temperature 98.6 F 98.6 F Pulse Rate 68 64 Respiratory 20 18 Rate Blood Pressure 135/83 157/83 Blood Pressure [Right] O2 Sat by Pulse 100 100 100 Oximetry 01/21/18 01/21/18 11:00 11:53 Temperature 98.1 F Pulse Rate 73 Respiratory 18 Rate Blood Pressure 157/83 Blood Pressure 152/84 [Right] O2 Sat by Pulse 100 Oximetry General appearance: Present: no acute distress, well-nourished - EENT Eyes: PERRL, EOM intact ENT: hearing intact, clear oral mucosa Ears: bilateral: normal - Neck Neck: supple, normal ROM - Respiratory Respiratory effort: normal Respiratory: bilateral: CTA - Breasts Breasts: normal - Cardiovascular Heart rate: 70 Rhythm: regular Heart Sounds: Present: S1 & S2. Absent: gallop, rub Extremities: no ischemia, pulses intact, No edema, normal color, Full ROM - Gastrointestinal General gastrointestinal: Present: soft, non-tender, non-distended, normal bowel sounds - Genitourinary Female genitourinary: normal - Integumentary Integumentary: clear, warm, dry - Musculoskeletal Musculoskeletal: 1, strength equal bilaterally - Neurologic Neurologic: moves all extremities - Psychiatric Psychiatric: memory intact, appropriate mood/affect, intact judgment & insight - Labs CBC & Chem 7: 01/21/18 07:52 01/21/18 Unknown Labs: Abnormal lab results 01/20/18 01/20/18 01/20/18 Range/Units 16:59 16:59 21:41 RBC 5.55 H (3.65-5.03) M/mm3 Hgb 9.3 L (10.1-14.3) gm/dl MCV 60 L (79-97) fl MCH 17 L (28-32) pg MCHC 28 L (30-34) % RDW 36.3 H (13.2-15.2) % Seg Neuts % (Manual) 81.0 H (40.0-70.0) % Lymphocytes % (Manual) 13.0 L (13.4-35.0) % Lymphocytes # (Manual) 0.9 L (1.2-5.4) K/mm3 BUN 34 H (7-17) mg/dL Creatinine 3.3 H (0.7-1.2) mg/dL Glucose 137 H (65-100) mg/dL ALT (7-56) units/L CK-MB (CK-2) Rel Index (0-4) Troponin T 0.038 H 0.065 H D (0.00-0.029) ng/mL Albumin (3.9-5) g/dL Triglycerides 212 H (2-149) mg/dL Cholesterol 228 H (50-199) mg/dL LDL Cholesterol Direct 142 H (50-130) mg/dL HDL Cholesterol 65 H (40-59) mg/dL Urine Creatinine (0.1-20.0) mg/dL Urine Chloride (110-250) mmolL 01/20/18 01/21/18 01/21/18 Range/Units 23:10 07:52 07:52 RBC (3.65-5.03) M/mm3 Hgb 9.3 L (10.1-14.3) gm/dl MCV (79-97) fl MCH (28-32) pg MCHC (30-34) % RDW (13.2-15.2) % Seg Neuts % (Manual) (40.0-70.0) % Lymphocytes % (Manual) (13.4-35.0) % Lymphocytes # (Manual) (1.2-5.4) K/mm3 BUN (7-17) mg/dL Creatinine (0.7-1.2) mg/dL Glucose (65-100) mg/dL ALT (7-56) units/L CK-MB (CK-2) Rel Index (0-4) Troponin T 0.057 H 0.060 H (0.00-0.029) ng/mL Albumin (3.9-5) g/dL Triglycerides (2-149) mg/dL Cholesterol (50-199) mg/dL LDL Cholesterol Direct (50-130) mg/dL HDL Cholesterol (40-59) mg/dL Urine Creatinine (0.1-20.0) mg/dL Urine Chloride (110-250) mmolL 01/21/1818 01/21/18 Range/Units 09:35 Unknown Unknown RBC (3.65-5.03) M/mm3 Hgb (10.1-14.3) gm/dl MCV (79-97) fl MCH (28-32) pg MCHC (30-34) % RDW (13.2-15.2) % Seg Neuts % (Manual) (40.0-70.0) % Lymphocytes % (Manual) (13.4-35.0) % Lymphocytes # (Manual) (1.2-5.4) K/mm3 BUN 31 H (7-17) mg/dL Creatinine 3.1 H (0.7-1.2) mg/dL Glucose (65-100) mg/dL ALT 6 L (7-56) units/L CK-MB (CK-2) Rel Index 5.4 H (0-4) Troponin T 0.053 H 0.069 H D (0.00-0.029) ng/mL Albumin 3.6 L (3.9-5) g/dL Triglycerides (2-149) mg/dL Cholesterol (50-199) mg/dL LDL Cholesterol Direct (50-130) mg/dL HDL Cholesterol (40-59) mg/dL Urine Creatinine (0.1-20.0) mg/dL Urine Chloride (110-250) mmolL 05/30/18 Range/Units Unknown RBC (3.65-5.03) M/mm3 Hgb (10.1-14.3) gm/dl MCV (79-97) fl MCH (28-32) pg MCHC (30-34) % RDW (13.2-15.2) % Seg Neuts % (Manual) (40.0-70.0) % Lymphocytes % (Manual) (13.4-35.0) % Lymphocytes # (Manual) (1.2-5.4) K/mm3 BUN (7-17) mg/dL Creatinine (0.7-1.2) mg/dL Glucose (65-100) mg/dL ALT (7-56) units/L CK-MB (CK-2) Rel Index (0-4) Troponin T (0.00-0.029) ng/mL Albumin (3.9-5) g/dL Triglycerides (2-149) mg/dL Cholesterol (50-199) mg/dL LDL Cholesterol Direct (50-130) mg/dL HDL Cholesterol (40-59) mg/dL Urine Creatinine 128.6 H (0.1-20.0) mg/dL Urine Chloride 39.9 L (110-250) mmolL
[2018-01-22] MEDS ORDERED: APRESOLINE IV PRN (01:04)
[2018-01-22 08:35] LABS: Calcium 8.7 mg/dL (8.4-10.2)
[2018-01-22 08:48] VITALS: BP 161/84
--- NOTE | 2018-01-22 09:48 | Consultation ---
RENAL CONSULTATION REASON FOR CONSULTATION: Acute renal failure. HISTORY OF PRESENT ILLNESS: This 42-year-old female with a history of coronary artery disease status post recent stent about 3 weeks ago in [place] at [facility] in [place], [place], was brought to the Emergency Room for midsternal chest pain. She was noted to have a blood pressure of 191/107, pulse 89, temperature 98.7 in the Emergency Room. Labs were remarkable for BUN of 34, creatinine of 3.3, hemoglobin of 9.3. The patient states that she was told to have weak kidney function in [place] when she had the cardiac stent. PAST MEDICAL HISTORY: Hypertension, coronary artery disease, status post recent stent. PERSONAL HISTORY: Denies smoking, alcohol or drug abuse. FAMILY HISTORY: No family history of kidney failure. ALLERGIES: No known allergies. CURRENT MEDICATIONS: Aspirin 325 mg once a day, atorvastatin 80 mg a day, carvedilol 6.25 mg p.o. b.i.d., Plavix 75 mg a day, famotidine 10 mg p.o. b.i.d. , isosorbide 30 mg a day, metoclopramide p.r.n. FAMILY HISTORY: No family history of kidney failure. ALLERGIES: None. REVIEW OF SYSTEMS: The patient denies headache or dizziness. Denies fever or chills. Denies chest pain at the present time. Denies shortness of breath. Denies abdomen pain, nausea or vomiting. Denies swelling of the legs. Denies dysuria or hematuria. Other review of systems are reviewed and negative. PHYSICAL EXAMINATION: GENERAL: The patient is alert, oriented, pleasant female, not in acute distress. VITAL SIGNS: Blood pressure 157/83, pulse 73, afebrile. HEAD: Normocephalic. EYES: Pupils reactive. Conjunctivae pale. Oral mucosa and tongue are moist. Lips non-cyanotic. NECK: No JVD, no thyroid enlargement. LUNGS: Clear. HEART: S1, S2 regular. No pericardial rub. ABDOMEN: Soft, bowel sounds present, nontender. No masses palpable. EXTREMITIES: No significant edema. LABORATORY DATA: On 01/20/2018, BUN 34, creatinine 3.3. Sodium 138, potassium 4.8, chloride 102, CO2 of 24, glucose 137, calcium 9.1. Troponin 0.038. Triglycerides 212, cholesterol 228, LDL 142, HDL 65. ASSESSMENT AND PLAN: 1. Acute versus acute on chronic kidney disease, status post recent coronary stent with contrast exposure. 2. Hypertension. 3. Anterior chest wall pain. 4. Anemia. 5. Hyperlipidemia. Check urine studies and a renal ultrasound. Adjust medications per renal function. Avoid hypotension. Thank you for the consultation. MOHSEN
--- NOTE | 2018-01-22 09:53 | Progress Note ---
Assessment and Plan - Patient Problems (1) Acute kidney injury superimposed on CKD Current Visit: Yes Status: Acute Plan to address problem: Base line renal function not known. Recent cardiac cath/contrast exposure, coronary stent in [place]. Pt is non oliguric, renal function stable. 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 Adjust meds per renal function. with eGFR-CKD stage 4. No hydronephrosis on renal ultrasound. Discussed with Dr. Preciado (2) HTN (hypertension) Current Visit: Yes Status: Acute (3) Chest pain Current Visit: Yes Status: Acute Qualifiers: Chest pain type: unspecified Qualified Code(s): R07.9 - Chest pain, unspecified (4) Anemia Current Visit: Yes Status: Acute Plan to address problem: monitor--check work up Subjective Date of service: 01/22/18 Principal diagnosis: NSTEMI/Atypical chest pain Interval history: pt is alert, oriented, denies CP or SOB at present time, planning to go back to [place] next week Objective - Vital Signs Vital signs: Vital Signs - 12hr 01/21/18 01/22/18 01/22/18 22:49 00:33 01:14 Temperature 98.5 F Pulse Rate 74 77 79 Respiratory 20 Rate Blood Pressure 183/96 185/100 189/100 Blood Pressure [Right] O2 Sat by Pulse 100 Oximetry 01/22/18 01/22/18 01/22/18 03:57 04:00 06:03 Temperature 98.6 F Pulse Rate 90 76 Respiratory 20 Rate Blood Pressure 167/100 Blood Pressure 162/83 [Right] O2 Sat by Pulse 100 Oximetry 01/22/18 08:13 Temperature 98.0 F Pulse Rate 70 Respiratory 19 Rate Blood Pressure 161/84 Blood Pressure [Right] O2 Sat by Pulse 96 Oximetry - General Appearance General appearance: well-developed EENT: mucous membranes moist Neck: no JVD Respiratory: Present: Clear to Ascultation Cardiology: regular Gastrointestinal: normoactive bowel sounds Neurologic: alert and oriented x3 Musculoskeletal: other (no edema) Psychiatric: mood/affect appropriate, cooperative - Lab 01/21/18 07:52 01/22/18 06:31 Most recent lab results Calcium 8.7 mg/dL (8.4-10.2) 01/22/18 06:31 Urine Creatinine 128.6 mg/dL (0.1-20.0) H 01/21/18 Unknown Urine Sodium 54 mmol/L 01/21/18 Unknown
[2018-01-22] MEDS ORDERED: COREG PO SCH ×2 (09:58→10:00)
[2018-01-22] MEDS ORDERED: BABY ASPIRIN PO SCH (10:00)
--- NOTE | 2018-01-22 10:23 | Progress Note ---
Assessment and Plan Assessment: Chest pain, atypical - currently resolved CAD s/p NSTEMI with PCI of mid LAD at [facility] in [place] on 01/02/2018 Acute renal failure on ? CKD Minimally elevated troponins - suspect secondary to renal insufficiency Accelerated HTN HLP Pulmonary HTN Plan: Medical records from [place] received and reviewed - pt underwent LHC with PCI of mid LAD for NSTEMI on 01/02/2018. At that time, she was also found to have pulmonary HTN with significantly elevated mean PA pressure. Obtain echo. Cont ASA, plavix, lipitor. Optimize anti-hypertensive regimen - increase coreg and imdur. No ACEI/ARB at this time in setting of renal insufficiency. No plans for repeat ischemic evaluation at this time given recent LHC and current resolution of chest pain. Assessment and plan reviewed with pt at bedside. The patient has been seen in conjunction with Dr. GRACIELA Esposito who agrees with the assessment and plan of care. Subjective Date of service: 01/22/18 Principal diagnosis: NSTEMI/Atypical chest pain Interval history: pt resting comfortably in bed, no current cardiac complaints. she reports that she had a bout of burning "indigestion type" chest pain overnight which was alleviated by IV zofran. Objective Last Vital Signs Temp 98.0 F 01/22/18 08:13 Pulse 70 01/22/18 08:13 Resp 19 01/22/18 08:13 BP 161/84 01/22/18 08:13 Pulse Ox 96 01/22/18 08:13 - Physical Examination General: No Apparent Distress HEENT: Positive: PERRL, Normocephaly, Mucus Membranes Moist Neck: Positive: neck supple, trachea midline Cardiac: Positive: Reg Rate and Rhythm, S1/S2, Systolic Murmur Lungs: Positive: clear to auscultation Neuro: Positive: Grossly Intact, Cranial Nerve 2-12 Intact Abdomen: Positive: Soft. Negative: Tender Skin: Positive: Clear. Negative: Rash, Wound Musculoskeletal: No Fluid Collection, No Pain, Normal Range of Motion Extremities: Absent: edema - Labs and Meds Cardiac Enzymes 01/21/18 Range/Units 09:35 CK-MB (CK-2) 2.7 (0.0-4.0) ng/mL Comprehensive Metabolic Panel 01/22/18 Range/Units 06:31 Sodium 137 (137-145) mmol/L Potassium 4.1 (3.6-5.0) mmol/L Chloride 103.4 (98-107) mmol/L Carbon Dioxide 22 (22-30) mmol/L BUN 30 H (7-17) mg/dL Creatinine 3.3 H (0.7-1.2) mg/dL Glucose 78 (65-100) mg/dL Calcium 8.7 (8.4-10.2) mg/dL - Imaging and Cardiology EKG: report reviewed, image reviewed Echo: pending - EKG Sinus rhythms and dysrhythmias: sinus rhythm Chamber hypertrophy or enlargement: left ventricular hypertro Repolarization changes or abnormalities: repolarization abn secondary to ventricular hypertrophy
[2018-01-22] MEDS ORDERED: IMDUR PO SCH ×2 (10:25→12:00)
[2018-01-22] MEDS: COLACE PO SCH ×2 (11:32→11:34)
[2018-01-22] MEDS: PEPCID PO SCH (11:33)
[2018-01-22] MEDS: PLAVIX PO SCH (11:33)
--- NOTE | 2018-01-22 15:27 | Discharge Summary ---
Providers - Providers Date of Admission: 01/20/18 18:31 Date of discharge: 01/22/18 Attending physician: SIERRA MCGILL 01/20/18 20:29 Consult to Cardiology [CONS] Routine Consulting Provider: BREA COTTRELL Reason For Exam: chest pain, elevated troponin 01/20/18 21:50 Consult to Physician [CONS] Routine Comment: Consulting Provider: REG BASSETT Physician Instructions: Reason For Exam: ckd Primary care physician: INVESTMENT STRATEGIST Hospitalization Condition: Fair Hospital course: Assessment and Plan - Patient Problems (1) NSTEMI (non-ST elevated myocardial infarction) Current Visit: Yes Status: Acute Plan to address problem: Per cardiology patient has atypical chest pain Heparin drip stopped Lexiscan ordered Medical records from [facility] reviewed - pt underwent LHC with PCI of mid LAD for NSTEMI on 01/02/2018. At that time, she was also found to have pulmonary HTN with significantly elevated mean PA pressure. Obtain echo. Cont ASA, plavix, lipitor. Optimize anti-hypertensive regimen - increase coreg and imdur. No ACEI/ARB at this time in setting of renal insufficiency. No plans for repeat ischemic evaluation at this time given recent LHC and current resolution of chest pain. Assessment and plan reviewed with pt at bedside. (2) Acute kidney injury Current Visit: Yes Status: Acute Plan to address problem: Will give IV fluid challenge Patient may have underlying chronic kidney disease Renal consult requested Cr of 3.3 baseline Patient to follow up with nephrology as outpatient Patient relocating to [place]--will f/u with Nephrology there (3) Hypertension Current Visit: Yes Status: Chronic Qualifiers: Hypertension type: essential hypertension Qualified Code(s): I10 - Essential (primary) hypertension Plan to address problem: Continue antihypertensives (4) Dyslipidemia Current Visit: Yes Status: Chronic Plan to address problem: Statins initiated (5) Anemia Current Visit: Yes Status: Chronic Qualifiers: Anemia type: due to chronic kidney disease Chronic kidney disease stage: stage 4 (severe) Qualified Code(s): N18.4 - Chronic kidney disease, stage 4 ( severe); D63.1 - Anemia in chronic kidney disease Plan to address problem: Secondary to chronic kidney disease Disposition: DC-01 TO HOME OR SELFCARE Core Measure Documentation - Palliative Care Palliative Care/ Comfort Measures: Not Applicable - Core Measures Any of the following diagnoses?: none Exam - Physical Exam Narrative exam: Lying in bed comfortably - Constitutional Vitals: Temp Pulse Resp BP Pulse Ox 98.0 F 70 19 161/84 96 01/22/18 08:13 01/22/18 08:13 01/22/18 08:13 01/22/18 08:13 01/22/18 08:13 General appearance: Present: no acute distress, well-nourished - EENT Eyes: Present: PERRL ENT: hearing intact, clear oral mucosa - Neck Neck: Present: supple, normal ROM - Respiratory Respiratory effort: normal Respiratory: bilateral: CTA - Cardiovascular Heart Sounds: Present: S1 & S2. Absent: rub, click - Extremities Extremities: pulses symmetrical, No edema Peripheral Pulses: within normal limits - Abdominal General gastrointestinal: Present: soft, non-tender, non-distended, normal bowel sounds Female genitourinary: Present: normal - Integumentary Integumentary: Present: clear, warm, dry - Musculoskeletal Musculoskeletal: gait normal, strength equal bilaterally - Psychiatric Psychiatric: appropriate mood/affect, intact judgment & insight - Neurologic Neurologic: CNII-XII intact, moves all extremities Plan Activity: no restrictions Diet: renal Follow up with: PRIMARY CAREMD [Primary Care Provider] - 3-5 Days REG BASSETT MD [Staff Physician] - 7 Days MARION MERIDA MD [Staff Physician] - 7 Days
--- NOTE | 2018-01-22 21:49 | Consultation ---
RENAL CONSULTATION REASON FOR CONSULTATION: Acute renal failure. HISTORY OF PRESENT ILLNESS: This 42-year-old female with a history of coronary artery disease status post recent stent about 3 weeks ago in [place] at [facility] in [place], [place], was brought to the Emergency Room for midsternal chest pain. She was noted to have a blood pressure of 191/107, pulse 89, temperature 98.7 in the Emergency Room. Labs were remarkable for BUN of 34, creatinine of 3.3, hemoglobin of 9.3. The patient states that she was told to have weak kidney function in [place] when she had the cardiac stent. PAST MEDICAL HISTORY: Hypertension, coronary artery disease, status post recent stent. PERSONAL HISTORY: Denies smoking, alcohol or drug abuse. FAMILY HISTORY: No family history of kidney failure. ALLERGIES: No known allergies. CURRENT MEDICATIONS: Aspirin 325 mg once a day, atorvastatin 80 mg a day, carvedilol 6.25 mg p.o. b.i.d., Plavix 75 mg a day, famotidine 10 mg p.o. b.i.d., isosorbide 30 mg a day, metoclopramide p.r.n. FAMILY HISTORY: No family history of kidney failure. ALLERGIES: None. REVIEW OF SYSTEMS: The patient denies headache or dizziness. Denies fever or chills. Denies chest pain at the present time. Denies shortness of breath. Denies abdomen pain, nausea or vomiting. Denies swelling of the legs. Denies dysuria or hematuria. Other review of systems are reviewed and negative. PHYSICAL EXAMINATION: GENERAL: The patient is alert, oriented, pleasant female, not in acute distress. VITAL SIGNS: Blood pressure 157/83, pulse 73, afebrile. HEAD: Normocephalic. EYES: Pupils reactive. Conjunctivae pale. Oral mucosa and tongue are moist. Lips non-cyanotic. NECK: No JVD, no thyroid enlargement. LUNGS: Clear. HEART: S1, S2 regular. No pericardial rub. ABDOMEN: Soft, bowel sounds present, nontender. No masses palpable. EXTREMITIES: No significant edema. LABORATORY DATA: On 01/20/2018, BUN 34, creatinine 3.3. Sodium 138, potassium 4.8, chloride 102, CO2 of 24, glucose 137, calcium 9.1. Troponin 0.038. Triglycerides 212, cholesterol 228, LDL 142, HDL 65. ASSESSMENT AND PLAN: 1. Acute versus acute on chronic kidney disease, status post recent coronary stent with contrast exposure. 2. Hypertension. 3. Anterior chest wall pain. 4. Anemia. 5. Hyperlipidemia. Check urine studies and a renal ultrasound. Adjust medications per renal function. Avoid hypotension. Thank you for the consultation. JOB# [id number] UMK/NTS
== END 2018-01-22 18:20 | disposition home or self-care (01) | DRG 281 ==
LOC: ED 16:23 → 4A 18:31 → 3A 01-21 18:21
PROVIDERS: ADMIT Internal Medicine; ATTEND Internal Medicine
DX: I21.4 Non-ST elevation (NSTEMI) myocardial infarction (principal); N17.9 Acute kidney failure, unspecified; R74.8 Abnormal levels of other serum enzymes; E78.5 Hyperlipidemia, unspecified; D63.1 Anemia in chronic kidney disease; I27.20 Pulmonary hypertension, unspecified; I25.10 Atherosclerotic heart disease of native coronary artery without angina pectoris; N18.9 Chronic kidney disease, unspecified; I12.9 Hypertensive chronic kidney disease with stage 1 through stage 4 chronic kidney disease, or unspecified chronic kidney disease; Z95.1 Presence of aortocoronary bypass graft
CPT/HCPCS: 36415; 71045; 76770; 80048; 80053; 80061; 81003; 82436; 82550; 82553; 82570; 82607; 82747; 83036; 83550; 84300; 84484; 85007; 85014; 85018; 85025; 85049; 85610; 85730; 93005; 93010; 93306; A9270-GY; J0360; J1644; J2270; J2405; J7030

== ENCOUNTER 2018-01-23 12:52 | Emergency (ER) | payer SELFPAY ==
[2018-01-23] MEDS ORDERED: ASPIRIN PO ONE (13:09)
[2018-01-23 14:12] LABS: Mean Corpuscular HGB Conc 30 % (30-34); Red Blood Count 5.64 M/mm3 (3.65-5.03)
[2018-01-23 14:14] LABS: Hematocrit 33.9 % (30.3-42.9); Mean Corpuscular Hemoglobin 18 pg (28-32); Mean Corpuscular Volume 60 fl (79-97); Red Cell Distribution Width 36.8 % (13.2-15.2)
[2018-01-23 14:26] LABS: Calcium 9.1 mg/dL (8.4-10.2)
[2018-01-23 15:19] LABS: Basophils % (Manual) 0 % (0.0-1.8); Total Cells Counted 100
[2018-01-23 15:20] LABS: Anisocytosis 2+; Hypochromasia 3+; Platelet Estimate Consistent w Auto; Target Cells 2+
[2018-01-23 15:24] LABS: Platelet Count 234 K/mm3 (140-440)
[2018-01-23] MEDS ORDERED: CATAPRES PO ONE (16:39)
--- NOTE | 2018-01-23 16:57 | Emergency Department Report ---
HPI - General Chief Complaint: High BP Time Seen by Provider: 01/23/18 16:38 - HPI HPI: Room 23 The patient is a 42-year-old female presenting with chief complaint of bilateral hand tingling. The patient states since yesterday she's had intermittent tingling of both hands and wrists. Patient denies any preceding trauma. Patient denies any dysarthria, dysphasia or weakness. The patient states she had a headache yesterday but improved after aspirin. Patient denies chest pain or shortness of breath. 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 Location: Bilateral hands Duration: Intermittent since yesterday Quality: Tingling Severity: Mild Modifying factors: [see above] Context: [see above] Mode of transportation: Unknown ED Past Medical Hx - Past Medical History Hx Hypertension: Yes Hx Heart Attack/AMI: Yes - Surgical History Hx Coronary Stent: Yes (one) - Family History Family history: no significant - Social History Smoking Status: Former Smoker (none for years) Substance Use Type: None (denies illicit drug use), Alcohol (occasional) - Medications Home Medications: Home Medications Medication Instructions Recorded Confirmed Last Taken Type Aspirin [Aspirin BABY CHEW TAB] 81 mg PO QDAY tab.chew 01/22/18 Unknown Rx AtorvaSTATin [Lipitor] 40 mg PO QHS #30 tab 01/22/18 Unknown Rx AtorvaSTATin [Lipitor] 40 mg PO QHS #30 tablet 01/22/18 Unknown Rx Carvedilol [Coreg] 12.5 mg PO BID tablet 01/22/18 Unknown Rx Clopidogrel [Plavix] 75 mg PO QDAY tablet 01/22/18 Unknown Rx Furosemide [Lasix] 20 mg PO QDAY #30 tablet 01/22/18 Unknown Rx ISOSORBIDE MONOnitrate [Imdur ER] 60 mg PO QDAY tablet 01/22/18 Unknown Rx Potassium Chloride [K-Dur] 10 meq PO QDAY #30 tablet 01/22/18 Unknown Rx ED Review of Systems ROS: Stated complaint: TINGLING TO HANDS Other details as noted in HPI Constitutional: denies: weakness Respiratory: denies: shortness of breath Cardiovascular: denies: chest pain Neurological: headache, paresthesias, other (denies dysarthria or dysphasia). denies: weakness Physical Exam - Physical Exam Vital Signs: Vital Signs 06/01/18 13:03 Temperature 98.7 F Pulse Rate 87 Respiratory 16 Rate Blood Pressure 190/99 O2 Sat by Pulse 100 Oximetry Vital Signs 01/23/18 01/23/18 13:03 17:00 Temperature 98.7 F Pulse Rate 87 73 Respiratory 16 Rate Blood Pressure 190/99 204/98 O2 Sat by Pulse 100 Oximetry Blood pressure improved to systolic in the 150s Physical Exam: GENERAL: The patient is well-developed well-nourished female lying on stretcher not appear to be in acute distress. [] HEENT: Normocephalic. Atraumatic. Extraocular motions are intact. Patient has moist mucous membranes. NECK: Supple. No meningitic signs are noted. Trachea midline CHEST/LUNGS: Clear to auscultation. There is no respiratory distress noted. HEART/CARDIOVASCULAR: Regular. There is no tachycardia. There is no gallop rub or murmur. 2+ radial pulse bilaterally. Normal capillary refill digits of bilateral hands ABDOMEN: Abdomen is soft, nontender. Patient has normal bowel sounds. There is no abdominal distention. SKIN: There is no rash. There is no edema. There is no diaphoresis. NEURO: The patient is awake, alert, and oriented. The patient is cooperative. The patient has no focal neurologic deficits. The patient has normal speech. Cranial nerves II through XII grossly intact, no drift. Normal sensation throughout. Dynamite Reclaimer 5+/5 bilaterally MUSCULOSKELETAL: Negative Phalen's test. There is no evidence of acute injury. ED Course Vital Signs 01/23/18 13:03 Temperature 98.7 F Pulse Rate 87 Respiratory 16 Rate Blood Pressure 190/99 O2 Sat by Pulse 100 Oximetry - Reevaluation(s) Reevaluation #1: 01/23/18 19:10 Patient asymptomatic ED Medical Decision Making - Lab Data Result diagrams: 01/23/18 13:54 01/23/18 13:54 Laboratory Tests 01/23/18 01/23/18 01/23/18 13:54 13:54 15:32 WBC 7.4 RBC 5.64 H Hgb 10.0 L Hct 33.9 MCV 60 L MCH 18 L MCHC 30 RDW 36.8 H Plt Count 234 Add Manual Diff Complete Total Counted 100 Seg Neuts % (Manual) 88.0 H Band Neutrophils % 0 Lymphocytes % (Manual) 7.0 L Reactive Lymphs % (Man) 0 Monocytes % (Manual) 4.0 Eosinophils % (Manual) 1.0 Basophils % (Manual) 0 Metamyelocytes % 0 Myelocytes % 0 Promyelocytes % 0 Blast Cells % 0 Nucleated RBC % Not Reportable Seg Neutrophils # Man 6.5 Band Neutrophils # 0.0 Lymphocytes # (Manual) 0.5 L Abs React Lymphs (Man) 0.0 Monocytes # (Manual) 0.3 Eosinophils # (Manual) 0.1 Basophils # (Manual) 0.0 Metamyelocytes # 0.0 Myelocytes # 0.0 Promyelocytes # 0.0 Blast Cells # 0.0 WBC Morphology Not Reportable Hypersegmented Neuts Not Reportable Hyposegmented Neuts Not Reportable Hypogranular Neuts Not Reportable Smudge Cells Not Reportable Toxic Granulation Not Reportable Toxic Vacuolation Not Reportable Dohle Bodies Not Reportable Pelger-Huet Anomaly Not Reportable Mukesh Rods Not Reportable Platelet Estimate Consistent w auto Clumped Platelets Not Reportable Plt Clumps, EDTA Not Reportable Large Platelets Not Reportable Giant Platelets Not Reportable Platelet Satelliting Not Reportable Plt Morphology Comment Not Reportable RBC Morphology Not Reportable Dimorphic RBCs Not Reportable Polychromasia Not Reportable Hypochromasia 3+ Poikilocytosis Not Reportable Anisocytosis 2+ Microcytosis 2+ Macrocytosis Not Reportable Spherocytes Not Reportable Pappenheimer Bodies Not Reportable Sickle Cells Not Reportable Target Cells 2+ Tear Drop Cells Not Reportable Ovalocytes Not Reportable Helmet Cells Not Reportable Gregory-[place] Bodies Not Reportable [place] Rings Not Reportable Isamar Cells Not Reportable Bite Cells Not Reportable Crenated Cell Not Reportable Elliptocytes Not Reportable Acanthocytes (Spur) Not Reportable Rouleaux Not Reportable Hemoglobin C Crystals Not Reportable Schistocytes Not Reportable Malaria parasites Not Reportable Toby Bodies Not Reportable Hem Pathologist Commnt No Sodium 135 L Potassium 4.3 Chloride 100.0 Carbon Dioxide 23 Anion Gap 16 BUN 29 H Creatinine 3.2 H Estimated GFR 19 BUN/Creatinine Ratio 9 Glucose 99 Calcium 9.1 Troponin T 0.054 H 0.050 H - EKG Data -: EKG Interpreted by Ut EKG shows normal: sinus rhythm Rate: normal - EKG Data When compared to previous EKG there are: previous EKG unavailable (visual copy of EKG unavailable. Written description of EKG available in previous H&P's) Interpretation: nonspecific ST-T wave roque (T-wave inversion in leads 1, 2, aVL, V4, V5, V6) - Radiology Data Radiology results: report reviewed (CT head), image reviewed (CT head) CT head (read by radiologist)- no acute intracranial findings - Differential Diagnosis hypertensive urgency, carpal tunnel syndrome, neuropathy, CVA Critical care attestation.: If time is entered above; I have spent that time in minutes in the direct care of this critically ill patient, excluding procedure time. ED Disposition Clinical Impression: Hypertensive urgency Disposition: DC-01 TO HOME OR SELFCARE Is pt being admited?: No Does the pt Need Aspirin: No Condition: Stable Instructions: Hypertensive Crisis (ED) Additional Instructions: Return to the emergency department immediately should you develop worsening symptoms, fever, inability to tolerate food or liquid or any other concerns. Referrals: [facility] [Outside] - 3-5 Days KHADRA YATES MD [Staff Physician] - 3-5 Days (Dr. Yates is a primary physician. Please follow with him to be established as a patient) Time of Disposition: 19:16
[2018-01-23 19:51] VITALS: BP 157/86
--- NOTE | 2018-01-26 14:24 | Cat Scan Report ---
FINAL REPORT EXAM: CT HEAD/BRAIN WO CON HISTORY: hypertension, headache TECHNIQUE: Noncontrast CT axial images of the brain. PRIORS: None. FINDINGS: No parenchymal mass, mass effect, hemorrhage, midline shift or hydrocephalus. No evidence of acute cortical infarct. Probable left choroidal fissure cyst measuring approximately 1.5 cm incidentally noted. No other abnormal, extra-axial fluid or air collection. Osseous calvarium grossly intact. IMPRESSION: 1. No acute intracranial findings.
== END 2018-01-23 20:00 | disposition home or self-care (01) ==
LOC: ED 12:52
DX: I16.0 Hypertensive urgency (principal); I10 Essential (primary) hypertension; I25.2 Old myocardial infarction; Z95.818 Presence of other cardiac implants and grafts
CPT/HCPCS: 36415; 70450; 80048; 84484; 85007; 85025; 93005; 93010